=== PATIENT | female | born 1955 | race Caucasian/White ===

== ENCOUNTER 2017-08-21 13:14 | Outpatient (CLI) | payer OTHER ==
[2017-08-21 15:17] LABS: #Basophils 0.1 thou/uL (0.0-0.2); #Eosinphils 0.2 thou/uL (0.0-0.7); #Lymphocytes 1.2 thou/uL (1.20-3.40); #Monocytes 0.4 thou/uL (0.11-0.59); #Neutrophils 4.9 thou/uL (1.40-6.50); %Basophils 0.9 % (0.0-1.0); %Eosinophils 2.4 % (0.0-10.0); %Lymphocytes 18.2 % (21.0-51.0); %Monocytes 6.4 % (0.0-10.0); %Neutrophils 72.2 % (42.0-75.0); Hemoglobin 12.9 g/dL (12.0-16.0); Mean Corpuscular HGB CONC 31.2 g/dL (32.0-36.0); Mean Corpuscular Hemoglobin 31.4 pg (27.0-31.0); Mean Platelet Volume 6.9 fL (7.4-10.4); Platelet Count 232 thou/uL (130-400); RBC Distribution Width 12.6 % (11.5-14.5); White Blood Cell (WBC) Count 6.8 thou/uL (4.8-10.8)
[2017-08-21 15:19] LABS: Bilirubin Negative (Negative); Blood, Urine Negative (Negative); Clarity CLEAR (Clear); Glucose, Urine (Dipstick) Negative (Negative); Leukocyte Negative (Negative); Nitrite Negative (Negative); Protein, Urine (Dipstick) Negative (Neg-Trace); Specific Gravity, Urine 1.012 (1.002-1.036); Urobilinogen 0.2 mg/dL (0.2-1.0); pH, Urine 7.5 (5.0-9.0)
[2017-08-21 15:21] LABS: Bacteria/HPF None Seen HPF (None Seen); Hyaline Casts/LPF 0-3 HYALINE CAST LPF (0-3 Hyaline); RBC/HPF 0-3 HPF (0-3); Squamous Epithelial None Seen HPF (0-3); WBC/HPF 0-3 HPF (0-3)
[2017-08-21 15:37] LABS: Anion Gap 14 mmol/L (10-20); BUN (Urea Nitrogen) 21 mg/dL (9.8-20.1); Calc. Creatinine Clearance 0 mL/min (70-130); Calcium 9.9 mg/dL (7.8-10.44); Carbon Dioxide 27 mmol/L (22-29); Chloride 104 mmol/L (98-107); Estimated GFR-MDRD 52; Glucose 81 mg/dL (70-105); Potassium 3.6 mmol/L (3.5-5.1); Sodium 141 mmol/L (136-145)
--- NOTE | 2017-09-03 22:52 | EKG ---
Test Reason : Blood Pressure : / mmHG Vent. Rate : 092 BPM Atrial Rate : 092 BPM P-R Int : 138 ms QRS Dur : 076 ms QT Int : 352 ms P-R-T Axes : 066 069 042 degrees QTc Int : 435 ms Normal sinus rhythm Possible Left atrial enlargement Borderline ECG When compared with ECG of 06-FEB-2017 12:26, No significant change was found Confirmed by Ignacia GOLDEN ([id number]) on 09/03/2017 10:52:38 PM Referred By: PEGGY Confirmed By:Ignacia GOLDEN
== END 2017-08-21 13:15 | disposition home or self-care (01) ==
LOC: LABBT 13:14
PROVIDERS: ATTEND Urology
DX: Z01.818 Encounter for other preprocedural examination (principal); C67.9 Malignant neoplasm of bladder, unspecified; C66.2 Malignant neoplasm of left ureter
CPT/HCPCS: 80048; 81001; 85025; 87086; 93005; 93010

== ENCOUNTER 2017-08-28 15:38 | Outpatient (CLI) | payer OTHER ==
[2017-08-28 16:33] LABS: PTT 27.5 SEC (22.9-36.1); Prothrombin Time 12.8 SEC (12.0-14.7)
== END 2017-08-28 15:39 | disposition home or self-care (01) ==
LOC: LABBT 15:38
PROVIDERS: ATTEND Urology
DX: Z01.818 Encounter for other preprocedural examination (principal); C67.9 Malignant neoplasm of bladder, unspecified; C66.2 Malignant neoplasm of left ureter
CPT/HCPCS: 85610; 85730; 86850; 86900; 86901

== ENCOUNTER 2017-09-01 08:33 | Outpatient (CLI) | payer OTHER ==
--- NOTE | 2017-09-01 11:10 | CT ---
CT ABDOMEN AND PELVIS WITHOUT AND WITHOUT CONTRAST: Comparison: 03-01-17 History: History of renal cell carcinoma, status post kidney resection and chemotherapy. Technique: Multiple contiguous axial images were obtained in a CT of the abdomen and pelvis without a nd with IV contrast. Post contrast images were obtained in nephrographic and expiratory phases. Coron al reformats were performed. FINDINGS: The patient is status post left nephrectomy and cholecystectomy. There is mild stable intrahepatic bi liary dilatation which is likely a reservoir effect from prior cholecystectomy. The right kidney, adr enal glands, spleen, and pancreas are unremarkable. No free air, free fluid, or shadowing changes are seen in the abdomen or pelvis. The reproductive organs are unremarkable. Hypodensity in the right ovary is seen measuring 2.0 cm in size which likely represents a small ovarian cyst. This remains stable compared to the prior exam. Th e large and small bowel are unremarkable. The appendix is normal. There is soft tissue fullness in the left aspect of the retroperitoneum which appears to have enlarge d compared to the prior examination. This measures 2.5 x 1.3 x 2.4 cm in size. There are surgical cli ps adjacent to this soft tissue density fullness. No other enlarged soft tissue density masses are se en in the retroperitoneum. There is possibly a mildly enlarged lymph node between the aorta and infer ior vena cava measuring 10 mm in dimension. No other enlarged retroperitoneal or pelvic lymph nodes a re seen. No suspicious osseous lesions are identified. The visualized inferior thorax is unremarkable. The abd ominal wall soft tissues are unremarkable. IMPRESSION: 1. Post-surgical changes from left nephrectomy. There is increasing soft tissue density fullness in t he left aspect of the retroperitoneum. This could potentially be secondary to recurrent disease. 2. Possible enlarged lymph node between the aorta and inferior vena cava within the retroperitoneum. 3. Enlargement of the common bile duct and central intrahepatic biliary tree is likely a reservoir ef fect from prior cholecystectomy. Correlate with LFTs. 4. Right ovarian cyst. POS: [facility]
[2017-09-01] MEDS ORDERED: Iopamidol 370 76% 100 ML VIAL ONE (14:45)
--- NOTE | 2017-09-01 14:46 | NM ---
NUCLEAR MEDICINE BONE SCAN WHOLE BODY: (SKELETAL SCINTIGRAPHY) DATE: 09/01/17 HISTORY: 61-year-old female with malignant neoplasm of left renal pelvis; malignant neoplasm of bladder, un specified; other specified congenital malformations of kidney. TECHNIQUE: IV injection of [id number]: 33.0 mCi 3 hour delayed whole body skeletal scintigraphy in anterior and posterior views. COMPARISON: 12/02/16. FINDINGS: There are no foci of asymmetrically increased uptake that are particularly suspicious for bone metast ases. Several foci of increased uptake in the cervical spine are consistent with degenerative facet changes . Again noted is the absence of the left kidney. There are also degenerative changes at the left hip and bilateral feet. IMPRESSION: 1. No convincing evidence of skeletal metastasis. 2. Status post left nephrectomy. 3. Cervical spondylosis. 4. 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 FERNANDO Liu POS: [facility]
== END 2017-09-01 08:34 | disposition home or self-care (01) ==
LOC: CT 08:33
PROVIDERS: ATTEND Urology
DX: C65.2 Malignant neoplasm of left renal pelvis (principal); C67.9 Malignant neoplasm of bladder, unspecified; Q63.8 Other specified congenital malformations of kidney; Z90.5 Acquired absence of kidney; R19.09 Other intra-abdominal and pelvic swelling, mass and lump; N83.201 Unspecified ovarian cyst, right side; M47.892 Other spondylosis, cervical region; M16.12 Unilateral primary osteoarthritis, left hip; M19.072 Primary osteoarthritis, left ankle and foot; M19.071 Primary osteoarthritis, right ankle and foot
CPT/HCPCS: 74178; 78306; A9503

== ENCOUNTER 2017-09-03 06:01 | Day surgery (SDC) | payer OTHER ==
[2017-08-21 13:50] VITALS: BMI 21.4
[2017-09-03] MEDS ORDERED: Fentanyl 250 MCG/5 ML VIAL ONE (06:41)
[2017-09-03] MEDS ORDERED: Levofloxacin 500 mg/D5W 100 ml Premix Bag ONE (06:52)
[2017-09-03] MEDS ORDERED: mitoMYcin 40 MG, Admixture Fee 1 EACH in Sodium Chloride 0.9% 40 ML IV SCH (07:00)
[2017-09-03] MEDS ORDERED: Ondansetron HCl/PF 4 MG/2 ML Vial ONE ×2 (08:35→15:27)
[2017-09-03] MEDS ORDERED: Fentanyl 100 MCG/2 ML VIAL ONE ×3 (08:54→12:38)
[2017-09-03] MEDS ORDERED: Oxybutynin 5 MG TAB ONE (09:36)
[2017-09-03] MEDS ORDERED: Phenazopyridine HCl 97.5 MG TABLET ONE (09:36)
--- NOTE | 2017-09-03 11:01 | OP ---
DATE OF PROCEDURE: 09/03/2017 PREOPERATIVE DIAGNOSES: 1. A 61-year-old female with history of left renal pelvic transitional cell carcinoma, status post n eoadjuvant chemo, and nephroureterectomy with bladder cuff, TUR bladder tumor, left oophorectomy with lymph node dissection 06/2016. 2. History of T1 lamina propria focal invasion bladder cancer low-grade. 3. Small bladder dome recurrence approximately 8-10 mm. 4. History of multiple bladder tumor recurrence, unable to tolerate further BCG due to BCG fever, se en by Infectious Disease. 5. Recent restaging bone scan negative, CT demonstrating soft tissue density at the left retroperito neum, indeterminate newly appreciated interaortocaval lymph nodes, retroperitoneal soft tissue fullne ss measuring 2.5 x 1.3 x 2.4 cm. POSTOPERATIVE DIAGNOSES: 1. A 61-year-old female with history of left renal pelvic transitional cell carcinoma, status post n eoadjuvant chemo, and nephroureterectomy with bladder cuff, TUR bladder tumor, left oophorectomy with lymph node dissection 06/2016. 2. History of T1 lamina propria focal invasion bladder cancer low-grade. 3. Small bladder dome recurrence approximately 8-10 mm. 4. History of multiple bladder tumor recurrence, unable to tolerate further BCG due to BCG fever, se en by Infectious Disease. 5. Recent restaging bone scan negative, CT demonstrating soft tissue density at the left retroperito neum, indeterminate newly appreciated interaortocaval lymph nodes, retroperitoneal soft tissue fullne ss measuring 2.5 x 1.3 x 2.4 cm. PROCEDURE: Cystoscopy, transurethral resection of bladder tumor, bladder tumor biopsy, fulguration o f biopsy site, intravesical Mitomycin C instillation. SURGEON: Dr. Layla Carrasco ANESTHESIA: General. COMPLICATIONS: None apparent. DISPOSITION: To recovery room in stable condition. SPECIMEN: Bladder tumor dome. INDICATIONS FOR THE PROCEDURE AND HISTORY: Ms. Multani is a 61-year-old female with history of left re nal pelvic TCC status post neoadjuvant chemotherapy, nephroureterectomy with bladder cuff. She has h ad multiple bladder tumor recurrences, which have been superficial low-grade. Her initial tumor was T1 secondary to focal lamina propria invasion. We did provide her with intravesical BCG induction , however, she was unable to finish her induction BCG after 4 doses due to history of fever. Jonatan freeman has had multiple recurrences, approximately 15-20 satellite lesions, this was resected and underwen t Mitomycin C. On her surveillance cystoscopy she had 1 solitary recurrence as above and presents to day for TURBT. Restaging CT bone scan was obtained, she complained of vague left lower back pain. B one scan negative. CT demonstrating retroperitoneal tumor recurrence likely. I did conference with her medical oncologist who will see after the resection of the bladder tumor for further therapy. Jonatan freeman presents today for the above procedure. Risks and complications and indications reviewed including , but not limited to, bleeding, pain, infection, injury to adjacent organs, urosepsis, bladder perfor ation. All questions answered to her satisfaction. She desired to proceed. DESCRIPTION OF THE PROCEDURE: After an informed consent is signed, the patient is taken to the opera ting room, placed in a dorsal lithotomy position with the genital area prepped and draped in the usua l surgical sterile fashion. Bilateral IZA hose, SCDs, and broad-spectrum antibiotics were provided. A 21 Tajik cystoscope was utilized for cystoscopy which demonstrated right UO with clear efflux of urine left UO was surgically absent. The bladder was inspected with a 30 and a 70 degree lens, demon strating a solitary bladder tumor recurrence papillary superficial appearing at the posterior dome ap proximately 1 cm in size. There are multiple areas of previous resection sites noted; however, no vi sible recurrence except the dome. At this time, given the small nature of the tumor, I did do a biop sy with a rigid biopsy so that we may have adequate specimen as TUR tends to obliterate small tumors. With a rigid biopsy forceps the tumor was removed en bloc. Her bladder is very attenuated, was abl e to see the muscle fibers with the rigid biopsies. The edges of the tumor was cauterized with gyrus bipolar. The 26 Tajik resectoscope was inserted under visual direction with visual obturator. Usi ng a bladder loop the edges and the bladder tumor site was fulgurated complete with good hemostasis. As her bladder is quite attenuated, I did not aggressively obtain further biopsy, as she is high ris k for bladder perforation given its location and attenuated bladder mucosa. At the end of the proced ure, the entire tumor was removed with good hemostasis. At this time, a 20 Tajik 30 mL three-way Fo nadya catheter was inserted and mitomycin-C 40 mg in 40 mL of normal saline was instilled. She will ho ld retention with an indwelling Dennison catheter for one hour and transitioned to CBI. The patient dis charged with [place] #40 5/325, ciprofloxacin for 7 days. She may continue a bowel regimen, [facility] u ntil followup appointment. Return to clinic next Friday to review pathology and has follow up wit Medical Oncology for further intervention due to retroperitoneal recurrence.
[2017-09-03] MEDS ORDERED: HYDROcodone/Acetaminophen 5/325 mg Tablet ONE (13:57)
[2017-09-03] MEDS ORDERED: Dexamethasone 20 MG/5 ML VIAL ONE (15:27)
[2017-09-03] MEDS ORDERED: PHENYLEPHRINE-NS 100 MCG/ML 10 ML SYRINGE ONE (15:27)
[2017-09-03] MEDS ORDERED: PROPOFOL 200 MG/20 ML VIAL ONE (15:27)
[2017-09-03] MEDS ORDERED: Glycopyrrolate 0.2 MG/ML 5 ML SYRINGE ONE (15:27)
[2017-09-03] MEDS ORDERED: Lidocaine 1% PF 5 ML VIAL ONE (15:27)
[2017-09-03] MEDS ORDERED: diphenhydrAMINE 50 MG/ML VIAL ONE (15:27)
== END 2017-09-03 14:18 | disposition home or self-care (01) ==
LOC: SDC 06:01
PROVIDERS: ATTEND Urology
PROC: 0TBB8ZX Excision of Bladder, Via Natural or Artificial Opening Endoscopic, Diagnostic (ICD-10-PCS; principal; 2017-09-03)
PROC: 0T5B8ZZ Destruction of Bladder, Via Natural or Artificial Opening Endoscopic (ICD-10-PCS; principal; 2017-09-03)
DX: C67.1 Malignant neoplasm of dome of bladder (principal); M54.5 Low back pain; G89.29 Other chronic pain; K58.1 Irritable bowel syndrome with constipation; G25.81 Restless legs syndrome; M79.672 Pain in left foot; G43.909 Migraine, unspecified, not intractable, without status migrainosus; E78.5 Hyperlipidemia, unspecified; F41.9 Anxiety disorder, unspecified; F32.9 Major depressive disorder, single episode, unspecified; G47.00 Insomnia, unspecified; E55.9 Vitamin D deficiency, unspecified; Z79.899 Other long term (current) drug therapy; Z88.1 Allergy status to other antibiotic agents; Z88.5 Allergy status to narcotic agent; Z88.0 Allergy status to penicillin; Z88.8 Allergy status to other drugs, medicaments and biological substances; Z90.5 Acquired absence of kidney; Z90.6 Acquired absence of other parts of urinary tract; Z85.53 Personal history of malignant neoplasm of renal pelvis; Z92.21 Personal history of antineoplastic chemotherapy
CPT/HCPCS: 88305; 96374; J1100; J1200; J1956; J2001; J2405; J2704; J3010; J7050; J9280

== ENCOUNTER 2017-10-07 13:39 | Outpatient (CLI) | payer OTHER ==
--- NOTE | 2017-10-07 16:11 | PET ---
PET CT: 10/07/17 HISTORY: 61-year-old female with renal and bladder cancer. Left renal pelvis cancer, transitional cell carcino ma of the bladder, status post nephrectomy. Exam is requested for restaging. TECHNIQUE: PET scan with CT attenuation correction is performed from the base of the brain to the proximal thigh s following the intravenous administration of 12.4 millicuries of 15-fluorodeoxyglucose in the left w rist. Imaging was performed after an uptake interval of 59 minutes. COMPARISON: PET CT of 02/13/16. CORRELATION: CT abdomen and pelvis and whole body bone scan of 09/01/17. FINDINGS: There is hypermetabolic activity in the left retroperitoneal soft tissue mass seen in the CT scan of 09/01/17 with an SUV of 21. There is increased FDG localization in the small aortocaval lymph node with SUV of 3.2. No asad hypermetabolism is seen in the neck, chest, axilla, or pelvis. No hypermetabolic pulmonary n odules, liver or adrenal lesions are seen. There is increased linear uptake in the superior end plate of L4 with an SUV of 3.9 which demonstrate s mild end plate wedging and increased sclerosis consistent with insufficiency fracture. No other hyp ermetabolic skeletal lesions seen to suggest osseous metastasis. There is physiologic activity in the GI and tracts and visualized portions of the brain. A CT scan used for attenuation correction demonstrates no evidence of pleural effusions or ascites. A 2 cm rig ht adnexal cyst is again seen as on the CT scan of 09/01/17. IMPRESSION: Findings are suspicious for tumor recurrence/metastatic disease in the retroperitoneum. POS: [facility]
== END 2017-10-07 13:40 | disposition home or self-care (01) ==
LOC: PET 13:39
PROVIDERS: ATTEND Internal Medicine Medical Oncology
DX: C65.2 Malignant neoplasm of left renal pelvis (principal); C67.9 Malignant neoplasm of bladder, unspecified; Z88.0 Allergy status to penicillin; Z88.8 Allergy status to other drugs, medicaments and biological substances; Z88.1 Allergy status to other antibiotic agents
CPT/HCPCS: 78815; A9552

== ENCOUNTER 2017-12-16 10:06 | Outpatient (CLI) | payer OTHER ==
[~2017-12-16 10:06] MED LIST: Gadobenate Dimeglumine 529 MG/1 ML (20ML VIAL) ONE
--- NOTE | 2017-12-16 15:48 | MRI ---
LUMBAR SPINE MRI WITH AND WITHOUT CONTRAST 12/16/17 INDICATION: History of renal and bladder malignancy, renal plevis cancer, status post chemotherapy. FINDINGS: There is mild to moderate height loss of T11 vertebral body, mild superior end plate height loss of L 1, mild inferior end plate height loss at L3, mild superior end plate height loss of L4 and L5 verteb ral segments. There is associated end plate, predominantly linear oriented marrow edema as well as en hancement involving the superior end plate of L1, inferior end plate of L3 and L4 and superior end pl ate of L5. There is a mild focal area of edema and enhancement involving the anteroinferior T12 verte bral body. There is a generalized prominent T1 hyperintensity of the regional marrow which may be rel ated to prior therapy and predominant fatty marrow signal. Incidental note of Tarlov cyst formation. There is multilevel Degenerative change throughout the lumb ar spine with multilevel disc osteophyte formation resulting in mild multilevel central canal stenosi s. Mild retropulsion of bone at the superior L1, inferior L3, superior L5 levels effaces the ventral thecal sac. There is also mild retropulsion of bone at the anterior and inferior aspect of the director of [employer] ior L4 vertebral body. Incidental note of a left retroperitoneal mass centered within the left retrocrural region compatible with metastatic disease, incompletely assessed on the basis of this exam. The conus medullaris terminates at the L1 level. No pathologic intramedullary enhancement seen. IMPRESSION: Multilevel compression deformities of the lumbar spine as above, predominantly centered at the end pl ates and demonstrating linear associated marrow edema/enhancement, favoring multilevel osteoporotic c ompression deformities. Retroperitoneal metastatic disease to the left of midline is present with a large soft tissue mass si tuated at the anterolateral aspect of the L2-3 level. POS: [facility]
== END 2017-12-16 10:07 | disposition home or self-care (01) ==
LOC: SCSMRI 10:06
PROVIDERS: ATTEND Radiology Radiation Oncology
DX: C65.2 Malignant neoplasm of left renal pelvis (principal); M47.896 Other spondylosis, lumbar region; M48.061 Spinal stenosis, lumbar region without neurogenic claudication; M43.8X6 Other specified deforming dorsopathies, lumbar region; C77.2 Secondary and unspecified malignant neoplasm of intra-abdominal lymph nodes; Z90.5 Acquired absence of kidney; Z92.21 Personal history of antineoplastic chemotherapy
CPT/HCPCS: 72158; 82565; A9579

== ENCOUNTER 2018-03-11 10:34 | Outpatient (CLI) | payer OTHER ==
--- NOTE | 2018-03-11 15:50 | CT ---
CT OF THE ABDOMEWN AND PELVIS WITH AND WITHOUT IV CONTRAST: Date: 03/11/18 INDICATION: History of transitional cell carcinoma with status post left nephrectomy. COMPARISON: Prior CT of the abdomen and pelvis dated 09/01/[address] dated 10/07/17. FINDINGS: There has been interval enlargement of the soft tissue mass seen involving the left renal bed, now me asuring 6.8 x 4.2 x 8.6 cm, where it previously measured 2.5 x 1.3 x 2.4 cm. There are new numerous pulmonary nodules involving the lung bases, suspicious for pulmonary metastati c disease. One of the largest is seen within the lower lingula measuring 11.0 mm. There are hypodense lesions involving the L2 vertebral body consistent with osseous metastatic diseas e. There has been interval development of superior end plate compression abnormalities of L5, L4, and L1 . There is stable superior end plate compression abnormality of T11. There is diffuse osteopenia. The re is a stable cyst within the right adnexa measuring 2.1 cm. There is gas within the bladder. Unopac ified large and small bowel are unremarkable. IMPRESSION: 1. Worsening recurrent disease within the left renal bed. 2. Interval development of osseous and pulmonary metastatic disease. 3. Interval development of superior end plate compression abnormalities of L5, L4, and L1 without de finite associated lesions suspicious for insufficiency fractures. 4. Gas within the bladder may reflect recent instrumentation. Recommend correlation. 5. Stable 2.1 cm right ovarian cyst. 6. Other chronic findings as above. CODE T. POS: [facility]
[2018-03-11] MEDS ORDERED: ISOVUE-370 76%-LOCM 1 ML ONE (16:07)
== END 2018-03-11 10:35 | disposition home or self-care (01) ==
LOC: BICCT 10:34
PROVIDERS: ATTEND Internal Medicine Medical Oncology
DX: C67.9 Malignant neoplasm of bladder, unspecified (principal); C65.2 Malignant neoplasm of left renal pelvis; R11.2 Nausea with vomiting, unspecified; K59.04 Chronic idiopathic constipation; C78.00 Secondary malignant neoplasm of unspecified lung; N32.89 Other specified disorders of bladder; R93.7 Abnormal findings on diagnostic imaging of other parts of musculoskeletal system; N83.201 Unspecified ovarian cyst, right side; R91.8 Other nonspecific abnormal finding of lung field; M85.88 Other specified disorders of bone density and structure, other site; N83.8 Other noninflammatory disorders of ovary, fallopian tube and broad ligament
CPT/HCPCS: 74178; 82565